=== PATIENT | female | born 1995 | race Two or more races ===

== ENCOUNTER 2018-08-28 17:09 | Outpatient (CLI) | payer MEDICAID ==
[~2018-08-28] VITALS: Ht 172.7 cm; Wt 109.1 kg
[2018-08-28 17:40] LABS: MICROSCOPIC INDICATED
[2018-08-28] MEDS ORDERED: PREN-59 PO (17:44)
[2018-08-28 17:50] LABS: AMPHETAMINE SCREEN, URINE Negative (Negative); BARBITURATE SCREEN, URINE Negative (Negative); BENZODIAZEPINE SCREEN, URINE Negative (Negative); CANNABINOID SCREEN, URINE Negative (Negative); COCAINE SCREEN, URINE Negative (Negative); METHADONE SCREEN, URINE Negative (Negative)
[2018-08-28 17:52] LABS: OPIATE SCREEN, URINE Negative (Negative)
== END 2018-08-28 18:28 | disposition home or self-care (01) ==
LOC: LDOP 17:09
PROVIDERS: ATTEND Obstetrics & Gynecology
DX: O36.8130 Decreased fetal movements, third trimester, not applicable or unspecified (principal); Z3A.36 36 weeks gestation of pregnancy
CPT/HCPCS: 59025; 80307; 81001; 87086; 99201; 99211; G0463

== ENCOUNTER 2018-09-17 12:58 | Outpatient (CLI) | payer MEDICAID ==
[~2018-09-17] VITALS: Ht 172.7 cm; Wt 110.9 kg
[~2018-09-17 12:58] MED LIST: PREN-59 PO
[2018-09-17 13:12] VITALS: BP 132/77
[2018-09-17] MEDS ORDERED: PREN1TAB60 PO (14:31)
== END 2018-09-17 14:55 | disposition home or self-care (01) ==
LOC: LDOP 12:58
PROVIDERS: ATTEND Obstetrics & Gynecology
DX: O42.92 Full-term premature rupture of membranes, unspecified as to length of time between rupture and onset of labor (principal); Z3A.38 38 weeks gestation of pregnancy
CPT/HCPCS: 59025; 89060; 99211; G0463; Q0114

== ENCOUNTER 2018-09-25 17:13 | Outpatient (CLI) | payer MEDICAID ==
[~2018-09-25] VITALS: Ht 172.7 cm; Wt 110.0 kg
[~2018-09-25 17:13] MED LIST changes: +PREN1TAB60 PO
[2018-09-25 17:46] LABS: BASOPHILS # (AUTO) 0.07 x10^3/uL (0-0.1); BASOPHILS % (AUTO) 1 % (0-1); EOSINOPHILS # (AUTO) 0.04 x10^3/uL (0-0.4); EOSINOPHILS % (AUTO) 1 % (1-7); LYMPHOCYTES # (AUTO) 1.73 x10^3/uL (1-3.4); LYMPHOCYTES % (AUTO) 21 % (22-44); MD NO; MEAN CORPUSCULAR HGB CONC 33.8 g/dL (32.4-35.8); MEAN PLATELET VOLUME 9.7 fL (7.4-10.4); MONOCYTES # (AUTO) 0.46 x10^3/uL (0.2-0.8); MONOCYTES % (AUTO) 5 % (2-9); NEUTROPHILS # (AUTO) 6.15 x10^3/uL (1.8-6.8); NEUTROPHILS % (AUTO) 73 % (42-75); PLATELET COUNT 305 x10^3/uL (130-400); RED BLOOD COUNT 4.08 x10^6/uL (3.82-5.3); RED CELL DISTRIBUTION WIDTH 14.1 % (9.6-15.2)
[2018-09-25 17:58] LABS: MICROSCOPIC INDICATED
[2018-09-25 17:58] LABS: ALANINE AMINOTRANSFERASE 18 U/L (12-78); ALBUMIN 2.9 g/dL (3.4-5.0); ANION GAP 9 mmol/L (5-15); BILIRUBIN, DIRECT 0.1 mg/dL (0.1-0.2); CALCIUM 8.8 mg/dL (8.5-10.1); CHLORIDE 108 mmol/L (98-107); CREATININE 0.79 mg/dL (0.55-1.02)
[2018-09-25 18:00] LABS: ALKALINE PHOSPHATASE 140 U/L (45-117); BILIRUBIN,TOTAL 0.3 mg/dL (0.2-1.0); TOTAL PROTEIN 7.2 g/dL (6.4-8.2)
== END 2018-09-25 18:46 | disposition home or self-care (01) ==
LOC: LDOP 17:13
PROVIDERS: ATTEND Obstetrics & Gynecology
DX: O13.3 Gestational [pregnancy-induced] hypertension without significant proteinuria, third trimester (principal); Z3A.40 40 weeks gestation of pregnancy
CPT/HCPCS: 36415; 59025; 80053; 81001; 82248; 82570; 84156; 84550; 85025; 99211; G0463

== ENCOUNTER 2018-09-27 05:21 | Inpatient (IN) | payer MEDICAID ==
[~2018-09-27] VITALS: Ht 172.7 cm; Wt 110.0 kg
[2018-09-27] MEDS ORDERED: D5%-LACTATED RINGERS 1,000 ML IV SCH (05:22)
[2018-09-27] MEDS ORDERED: OXYTOCIN 30U/ 0.9% NaCL 500ML 500 ML IV PRN (05:22)
[2018-09-27] MEDS ORDERED: OXYTOCIN 30U/ 0.9% NaCL 500ML 500 ML IV ONE (05:22)
[2018-09-27] MEDS ORDERED: ONDANSETRON 2MG/ML, 2ML IVPush PRN ×2 (05:30→10:30)
[2018-09-27] MEDS ORDERED: CALCIUM CARBONATE 500 MG TAB.CHEW PO PRN ×2 (05:30→19:30)
[2018-09-27] MEDS ORDERED: FENTANYL PF 100 MCG/2ML IV PRN (05:30)
[2018-09-27 05:53] LABS: BASOPHILS # (AUTO) 0.03 x10^3/uL (0-0.1); BASOPHILS % (AUTO) 0 % (0-1); EOSINOPHILS # (AUTO) 0.03 x10^3/uL (0-0.4); EOSINOPHILS % (AUTO) 0 % (1-7); LYMPHOCYTES # (AUTO) 2.61 x10^3/uL (1-3.4); LYMPHOCYTES % (AUTO) 29 % (22-44); MD NO; MEAN CORPUSCULAR HEMOGLOBIN 30.2 pg (27.0-34.8); MEAN CORPUSCULAR HGB CONC 34.1 g/dL (32.4-35.8); MEAN CORPUSCULAR VOLUME 88.7 fL (80-100); MEAN PLATELET VOLUME 9.3 fL (7.4-10.4); MONOCYTES # (AUTO) 0.67 x10^3/uL (0.2-0.8); MONOCYTES % (AUTO) 8 % (2-9); NEUTROPHILS # (AUTO) 5.61 x10^3/uL (1.8-6.8); NEUTROPHILS % (AUTO) 63 % (42-75); PLATELET COUNT 286 x10^3/uL (130-400); RED BLOOD COUNT 4.19 x10^6/uL (3.82-5.3); RED CELL DISTRIBUTION WIDTH 13.1 % (9.6-15.2)
[2018-09-27] MEDS ORDERED: NEWBORN KIT ONE (06:02)
[2018-09-27] MEDS ORDERED: OXYTOCIN 30U/ 0.9% NaCL 500ML 500 ML ONE (06:02)
[2018-09-27] MEDS: LACTATED RINGERS 1,000 ML IV SCH ×2 (06:06→18:23)
[2018-09-27 07:36] VITALS: BP 121/75
[2018-09-27] MEDS ORDERED: FENTANYL/BUPIV./NS/PF 250 ML EPIDCONT SCH ×2 (10:23→13:26)
[2018-09-27] MEDS ORDERED: LACTATED RINGERS 1,000 ML IV SCH (10:23)
[2018-09-27] MEDS ORDERED: LACTATED RINGERS 1,000 ML IVBOLUS PRN (10:30)
[2018-09-27] MEDS ORDERED: EPHEDRINE 50 MG/ML, 1ML IVPush PRN (10:30)
[2018-09-27] MEDS ORDERED: FENTANYL PF 500 MCG, BUPIVACAINE/PF 0.5%, 30ML 62.5 ML in SODIUM CHLORIDE 0.9% 177.5 ML EPIDCONT SCH (14:00)
[2018-09-27] MEDS ORDERED: FENTANYL PF 100 MCG/2ML ONE (15:55)
[2018-09-27] MEDS: FENTANYL PF 100 MCG/2ML IVPush PRN ×2 (16:05→17:56)
[2018-09-27] MEDS ORDERED: IBUPROFEN 600 MG TABLET ONE (19:00)
[2018-09-27] MEDS ORDERED: OXYTOCIN 30U/ 0.9% NaCL 500ML 500 ML IV SCH ×2 (19:24)
[2018-09-27] MEDS: IBUPROFEN 600 MG TABLET PO PRN (19:25)
[2018-09-27] MEDS ORDERED: METHYLERGONOVINE 0.2 MG/ML IM PRN (19:30)
[2018-09-27] MEDS ORDERED: MAGNESIUM HYDROXIDE 8%, 30ML UDC PO PRN (19:30)
[2018-09-27] MEDS ORDERED: OXYTOCIN 10 UNITS/ML, 1ML IM PRN (19:30)
[2018-09-27] MEDS ORDERED: IBUPROFEN 800 MG TABLET PO PRN (19:30)
[2018-09-27] MEDS ORDERED: OXYcodone/APAP 5/325MG TABLET PO PRN ×2 (19:30)
[2018-09-27] MEDS ORDERED: ONDANSETRON 2MG/ML, 2ML IV PRN (19:30)
[2018-09-27] MEDS ORDERED: ACETAMINOPHEN 325 MG TABLET PO PRN (19:30)
[2018-09-27 21:00] VITALS: BP 119/70
[2018-09-28] VITALS: BP 125/75
[2018-09-28] MEDS: IBUPROFEN 600 MG TABLET PO PRN ×3 (02:30→23:34)
[2018-09-28 03:29] LABS: BASOPHILS # (AUTO) 0.04 x10^3/uL (0-0.1); BASOPHILS % (AUTO) 0 % (0-1); EOSINOPHILS % (AUTO) 0 % (1-7); HEMOGRAM NOTE RECHECKED; LYMPHOCYTES # (AUTO) 1.83 x10^3/uL (1-3.4); LYMPHOCYTES % (AUTO) 14 % (22-44); MD NO; MEAN CORPUSCULAR HEMOGLOBIN 29.8 pg (27.0-34.8); MEAN CORPUSCULAR HGB CONC 33.8 g/dL (32.4-35.8); MEAN CORPUSCULAR VOLUME 88.1 fL (80-100); MEAN PLATELET VOLUME 9.2 fL (7.4-10.4); MONOCYTES # (AUTO) 1.16 x10^3/uL (0.2-0.8); MONOCYTES % (AUTO) 9 % (2-9); NEUTROPHILS # (AUTO) 10.49 x10^3/uL (1.8-6.8); NEUTROPHILS % (AUTO) 78 % (42-75); PLATELET COUNT 248 x10^3/uL (130-400); RED CELL DISTRIBUTION WIDTH 13.9 % (9.6-15.2)
[2018-09-28 04:10] VITALS: BP 110/70
[2018-09-28 08:45] VITALS: BP 110/70
[2018-09-28] MEDS: PRENATAL VIT/IRON/FA 1 EACH TABLET PO SCH (09:46)
[2018-09-28 12:55] VITALS: BP 112/69
[2018-09-28 16:32] VITALS: BP 115/74
[2018-09-28 20:00] VITALS: BP 115/75
[2018-09-29 07:10] VITALS: BP 130/80
[2018-09-29] MEDS: PRENATAL VIT/IRON/FA 1 EACH TABLET PO SCH (08:22)
[2018-09-29] MEDS: IBUPROFEN 600 MG TABLET PO PRN (08:22)
[2018-09-29] MEDS ORDERED: OXYC-302 PO (11:42)
[2018-09-29] MEDS ORDERED: IBUP-1222 PO (11:42)
[2018-09-29] MEDS ORDERED: DOCU-131 PO (11:44)
== END 2018-09-29 13:00 | disposition home or self-care (01) | DRG 807 ==
LOC: LDIP 05:21 → 2NW 20:46
PROVIDERS: ADMIT Obstetrics & Gynecology; ATTEND Obstetrics & Gynecology
PROC: 10E0XZZ Delivery of Products of Conception, External Approach (ICD-10-PCS; principal; 2018-09-27)
DX: O71.82 Other specified trauma to perineum and vulva (principal); Z37.0 Single live birth; Z3A.40 40 weeks gestation of pregnancy
CPT/HCPCS: 36415; J7121; 85025; 86850; 86900; G0378; J3010; J2590; J7120